=== PATIENT | female | born 1955 ===

== ENCOUNTER 2022-05-19 08:30 | Inpatient (IN) | payer OTHER ==
[2022-05-24] MEDS ORDERED: AMLODIPINE BESYL5 MG (13:22)
[2022-05-24] MEDS ORDERED: VALSARTAN-HCTZ1 EAC2 (13:22)
[2022-05-24] MEDS ORDERED: DICLOFENAC SOD100 MG (13:22)
[2022-05-24] MEDS ORDERED: NABUMETONE750 MG (13:22)
[2022-05-24] MEDS ORDERED: ROSUVASTATIN CA10 MG (13:22)
[2022-05-24] MEDS ORDERED: LEVOTHYROXINE50 MCG (13:22)
[2022-05-24] MEDS ORDERED: PROAIR HFA8.5 GM (13:22)
[2022-05-24] MEDS ORDERED: SPIRIVA RESPIMAT4 GM (13:22)
[2022-05-24] MEDS ORDERED: MONTELUKAST SOD10 MG (13:22)
[2022-05-26] MEDS ORDERED: INTEGRA PLUS C1 EACH PO (07:52)
[2022-05-26] MEDS ORDERED: BACTRIM DS TAB1 EACH PO (07:53)
[2022-05-26] MEDS ORDERED: XARELTO10 MG PO (07:53)
[2022-05-26] MEDS ORDERED: OXYC1TAB9 PO (07:53)
== END 2022-05-26 20:12 | DRG 470 ==
LOC: SURH 05-24 06:46 → O/R 05-24 06:46 → SURG 05-24 08:30 → SURH 05-24 14:26
PROVIDERS: ADMIT Orthopaedic Surgery Sports Medicine; ATTEND Orthopaedic Surgery Sports Medicine
PROC: 0SRC0J9 Replacement of Right Knee Joint with Synthetic Substitute, Cemented, Open Approach (ICD-10-PCS; principal; 2022-05-24 10:15)
DX: M17.11 Unilateral primary osteoarthritis, right knee (principal); I10 Essential (primary) hypertension; E03.9 Hypothyroidism, unspecified; Z96.651 Presence of right artificial knee joint; Z20.822 Contact with and (suspected) exposure to COVID-19; E10.9 Type 1 diabetes mellitus without complications

== ENCOUNTER 2024-02-15 08:15 | Day surgery (SDC) | payer OTHER ==
[~2024-02-15 08:15] MED LIST: AMLODIPINE BESYL5 MG; BACTRIM DS TAB1 EACH PO; DICLOFENAC SOD100 MG; INTEGRA PLUS C1 EACH PO; LEVOTHYROXINE50 MCG; MONTELUKAST SOD10 MG; NABUMETONE750 MG; OXYC1TAB9 PO; PROAIR HFA8.5 GM; ROSUVASTATIN CA10 MG; SPIRIVA RESPIMAT4 GM; VALSARTAN-HCTZ1 EAC2; XARELTO10 MG PO
[2024-02-15] MEDS ORDERED: DIBUCAINE 30 GM TUBE ONE (11:41)
[2024-02-15] MEDS ORDERED: POVIDONE-IODINE 118 ML BOTT TOP ONE ×2 (11:42→12:00)
[2024-02-15] MEDS ORDERED: METRONIDAZOLE/SODIUM CHLORIDE 500 MG/100 ML PIGGYBACK IV ONE (11:42)
[2024-02-15] MEDS ORDERED: LIDOCAINE HCL 1%/EPINEPHRINE 20ML VIAL IJ ONE ×2 (11:42→12:00)
[2024-02-15] MEDS ORDERED: BUPIVACAINE HCL/MPF 0.5% 30ML VIAL ONE (11:42)
[2024-02-15] MEDS ORDERED: HEMOSTATIC MATRIX 1 KIT KIT TOP ONE ×2 (11:54→12:15)
[2024-02-15] MEDS ORDERED: BUPIVACAINE HCL/PF 0.25% 30ML VIAL InF ONE (12:00)
[2024-02-15] MEDS ORDERED: DIBUCAINE 30 GM TUBE RECTAL ONE (12:15)
== END 2024-02-15 18:05 | disposition home or self-care (01) ==
LOC: CIR.AMB 08:15
PROVIDERS: ATTEND Colon & Rectal Surgery
DX: K64.2 Third degree hemorrhoids (principal); K64.4 Residual hemorrhoidal skin tags; Z88.0 Allergy status to penicillin; J45.909 Unspecified asthma, uncomplicated; R06.81 Apnea, not elsewhere classified; E03.9 Hypothyroidism, unspecified; E11.9 Type 2 diabetes mellitus without complications; H93.19 Tinnitus, unspecified ear